=== PATIENT | female | born 1930 | race Caucasian/White ===

== ENCOUNTER 2018-09-28 08:49 | Day surgery (SDC) | payer OTHER ==
[~2018-09-28] VITALS: Ht 167.6 cm; Wt 68.4 kg
[~2018-09-28 08:49] MED LIST: ASPI325 PO; Accuretic 10-11 EACH PO; Aspirin EC81 MG PO; CALCIUM 600 +1 EAC8 PO; DIGOX125 MCG PO; Flecainide Ace150 MG PO; Jantoven1 MG PO; LANOXIN125 MCG PO; Multiple Vitam1 EACH PO; Mupirocin22 GM TP; PRESERVISION L1 EACH PO; QUINAPRIL HCTZ PO; Toprol Xl25 MG PO; Toprol Xl50 MG PO; WARF1 PO
--- NOTE | 2018-09-28 09:32 | NUR ---
09/28/18 0932 Madeleine Ruiz CALL LIGHT WITHIN REACH. FAMILY AT BEDSIDE
== END 2018-09-28 11:10 | disposition home or self-care (01) ==
LOC: ORSCSDS 08:49
PROVIDERS: Ophthalmology
PROC: 08RJ3JZ Replacement of Right Lens with Synthetic Substitute, Percutaneous Approach (ICD-10-PCS; principal; 2018-09-28 10:30)
DX: H25.11 Age-related nuclear cataract, right eye (principal); I10 Essential (primary) hypertension; I48.91 Unspecified atrial fibrillation; Z79.01 Long term (current) use of anticoagulants; G20 Parkinson's disease; Z79.899 Other long term (current) drug therapy; Z79.82 Long term (current) use of aspirin
CPT/HCPCS: J2001; J2250; J3301; J7040; V2632